=== PATIENT | male | born 1950 | race Caucasian/White ===

== ENCOUNTER 2016-11-03 06:57 | Day surgery (SDC) | payer OTHER, MEDICARE ==
--- NOTE | ~2016-11-03 | OP ---
Record Of [facility] [address] [place]. [address] NAME: ERASTO CARLOS : 48 STATUS : REG [facility] [place] PAT#: [id number] AGE: 66 ADM/REG DATE : 11/03/16 MR#: [id number] REPORT SERV DATE: 11/03/16 DICTATED BY: Sanjiv KELLY DATE: 11/03/16 REPORT STATUS : Draft TRANSCRIBED BY: EDWIGE DATE: 11/03/16 DATE OF PROCEDURE: 11/03/2016 PREOPERATIVE DIAGNOSIS: Right distal ureteral stone, 8 mm. POSTOPERATIVE DIAGNOSIS: Right distal ureteral stone, 8 mm. PROCEDURE: Right ureteral ESWL, re-treatment. SURGEON: Sanjiv Kelly M.D. ANESTHESIA: MAC. COMPLICATIONS: None. DRAINS: None. BRIEF HISTORY: The patient is a 66-year-old white male with a large right distal ureteral stone. 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 We decided to proceed with re-treatment in hopes of avoiding endoscopy. The risk of bleeding, infection, anesthesia, injury to adjacent organs, need for ureteroscopy with stent placement at some point, were all discussed and there were no unanswered questions. DESCRIPTION OF PROCEDURE: Under excellent MAC anesthesia, the patient was placed supine on the [employer] lithotripsy unit #2. The stone was easily localized at F2 and a total of 4000 shocks at a power level up to 9.0 were delivered to the stone. The patient tolerated the procedure well and will be discharged as an outpatient with the following instructions. DISCHARGE INSTRUCTIONS: 1. Home today. 2. Strain all urine and save any stone fragments. 3. Continue pain medicine and tamsulosin as needed. 4. Follow up in my office in one to two weeks with a MAURICE NEWMAN/EDWIGE Sanjiv Kelly M.D. / [phone] CC: Record Of Operation [facility] [address] [place]. [address] NAME: ERASTO CARLOS : 48 STATUS : REG [facility]#: [id number] AGE: 66 ADM/REG DATE : 11/03/16 MR#: [id number] REPORT SERV DATE: 11/03/16 DICTATED BY: Sanjiv KELLY DATE: 11/03/16 REPORT STATUS : Draft TRANSCRIBED BY: EDWIGE DATE: 11/03/16 Cristi Hartman WALLACE
[~2016-11-03 06:57] MED LIST: *DENIES
[2016-11-03 07:41] LABS: WBC (NOT ORDERED) (RFLEX) 0 (0-5)
[2016-11-03 07:55] LABS: ASCORBIC ACID (UR NOT ORDER) NEG (NEG); BILIRUBIN, URINE NEGATIVE (NEG); KETONE, URINE 20 MG/DL (NEG); LEUKOCYTE ESTERASE(NOT OR NEG (NEG)
[2016-11-03 08:19] LABS: HEMATOCRIT 43.7 % (40.0-51.0); HEMOGLOBIN 15.6 g/dL (13.6-17.8)
== END 2016-11-03 11:21 | disposition home or self-care (01) ==
LOC: SDC 06:57
DX: N20.1 Calculus of ureter (principal); Z00-Z99 Factors influencing health status and contact with health services; Z87.442 Personal history of urinary calculi
CPT/HCPCS: 50590; 74000; 81001; 85014; 85018; J2250; J3010; A9270-GY